=== PATIENT | male | born 1970 | race Caucasian/White ===

== ENCOUNTER → 2016-09-19 | Outpatient (CLI) | payer OTHER ==
--- NOTE | 2016-09-19 17:33 | CT ---
CT Coronary Calcium Score History: Screening. Baseline. Technique: Prospectively gated noncontrast images through the chest without contrast. Dose reduction techniques were utilized. Findings: LT Main; 0, LAD; 27, LCx; 0, RCA; 0, PDA; 0 Calcium score according to the Agatston-Janowitz criteria is 27 which is consistent with the 70 perce ntile for age. This means that 30% of patients of this age group have calcium score higher than this patient. Noncardiac evaluation: There are no significant pulmonary nodules. Heart is normal in size. Impression: A calcium score of 27 places the patient in the 70th percentile rank for age. Recommendations: 1. Risk factor modification. 2. Consider repeat scans in 2 to 5 years.
== END ==
LOC: CIMAGING 14:21
PROVIDERS: ATTEND Internal Medicine
DX: Z13.6 Encounter for screening for cardiovascular disorders (principal)
CPT/HCPCS: 75571-PO

== ENCOUNTER 2016-10-24 07:11 | Day surgery (SDC) | payer OTHER ==
[2016-10-24] MEDS ORDERED: LR 1,000 ML IV ONE (08:18)
[2016-10-24] MEDS ORDERED: LIDOCAINE 1% 5 ML SDV ID PRN (08:18)
[2016-10-24] MEDS ORDERED: fentaNYL 100 MCG/2 ML INJ ONE ×2 (08:37→09:17)
[2016-10-24] MEDS ORDERED: PROPOFOL 200 MG/20 ML VIAL ONE (08:37)
[2016-10-24] MEDS ORDERED: ROCURONIUM 50 MG/5 ML VIAL ONE (08:38)
[2016-10-24] MEDS ORDERED: LIDOCAINE 2% 5 ML SDV ONE (08:38)
[2016-10-24] MEDS ORDERED: DEXAMETHASONE 4 MG/ML VIAL ONE ×2 (08:38→08:45)
[2016-10-24] MEDS ORDERED: ONDANSETRON 4 MG/2 ML VIAL ONE (08:39)
[2016-10-24] MEDS ORDERED: MIDAZOLAM 2 MG/2 ML VIAL ONE (08:45)
[2016-10-24] MEDS ORDERED: BUPIVACAINE 0.5% 30 ML SDV ONE (08:49)
[2016-10-24] MEDS ORDERED: ceFAZolin 2 GM/DEXTROSE 100 ML IV ONE (09:00)
[2016-10-24] MEDS ORDERED: SUGAMMADEX SODIUM 200 MG/2 ML VIAL IVP ONE (09:55)
[2016-10-24] MEDS ORDERED: KETOROLAC 30 MG/1 ML SDV ONE (09:56)
[2016-10-24] MEDS ORDERED: SKIN ADHESIVE (DERMABOND) 1 EACH TP ONE (09:56)
--- NOTE | 2016-10-24 10:21 | GOP ---
[f rep st] OPERATIVE REPORT DATE OF OPERATION: 10/24/2016 SURGEON: Elizabeth Lin MD ANESTHESIA: Jamie Cates MD/general. PREOPERATIVE DIAGNOSIS: Left inguinal hernia. POSTOPERATIVE DIAGNOSIS: Recurrent left indirect inguinal hernia. PROCEDURE PERFORMED: Laparoscopic inguinal hernia repair with mesh. FINDINGS: Fused left indirect hernia. SPECIMENS: None. ESTIMATED BLOOD LOSS: 5 cc. INDICATIONS: This patient is a 46-year-old man who was noted to have a hernia on physical exam. He had this repaired many years ago. DESCRIPTION OF PROCEDURE: The patient was brought into the operating room, placed supine on the table, and general anesthesia was administered. His abdomen was prepped and draped in the usual sterile fashion. I infiltrated all sites with 0.5% Marcaine prior to making incisions. I made an incision beneath his umbilicus and dissected down through the subcutaneous tissues. I divided the anterior rectus sheath. I swept his rectus muscles laterally, and inserted the dissecting balloon-tip trocar directed toward the pubis. I performed hand insufflation with the camera in place. I then exchanged this for the working balloon. The peritoneum was breached. I removed the balloon and found a very small breach in the peritoneum which I was able to grasp with a hemostat. I inserted another balloon in order to keep in the preperitoneal space. Insufflation was performed at 15 mmHg and he was placed in the Trendelenburg position. Under direct vision, I placed a suprapubic trocar and a trocar between the first and second trocars. I dissected his pubis. His inferior epigastric vessels were kept anterior to the plane. I swept the tissue to create a lateral space. His hernia sac was was very fused to his cord and cord structures. I performed dissection in order to reduce this completely. There were no femoral hernias or direct hernia. I placed a piece of laparoscopic self -fixating ProGrip mesh and unrolled this to cover the direct, indirect, and femoral spaces. This was tacked to the pubic tubercle and anterior. I then explored the right side; no hernia was noted. The ports were removed under direct vision and the preperitoneal space allowed to desufflate. I closed the fascia, including the peritoneum (where there was a breach at the umbilical site ) with 0 Vicryl. Skin was closed with 4-0 Monocryl. Dermabond applied. He was awakened in the operating room, extubated, and transferred to PACU in stable condition. /[id number]/MODL MTDD
[2016-10-24] MEDS ORDERED: HYDROCODONE/APAP 5/325 TAB ONE (11:25)
== END 2016-10-24 12:05 | disposition home or self-care (01) ==
LOC: UNDOADMIN 07:11 → F3N 07:11 → FSGY 07:11 → EDSTATUS 08:30 → FSGY 12:05
PROVIDERS: ATTEND Surgery
PROC: 0YU64JZ Supplement Left Inguinal Region with Synthetic Substitute, Percutaneous Endoscopic Approach (ICD-10-PCS; principal; 2016-10-24 08:30)
DX: K40.91 Unilateral inguinal hernia, without obstruction or gangrene, recurrent (principal)
CPT/HCPCS: 49651; C1727; C1781; J0690; J1100; J1885; J2250; J2405; J2704; J3010